=== PATIENT | female | born 1940 | race Caucasian/White ===

== ENCOUNTER 2020-11-04 13:28 | Outpatient (CLI) | payer BC ==
--- NOTE | 2020-11-04 14:48 | MRI ---
Exam: MRI cervical spine without contrast HISTORY: Cervical disc disease. Neck pain x4 years.. COMPARISON: Prior MRIs performed in [place] are not available at this time FINDINGS: Appropriate T1 marrow signal intensity of the cervical vertebra. Cervical spine vertebral body heigh t is maintained. No fracture. No significant STIR hyperintensity to suggest ligamentous injury or vertebral body edema Visualized brain parenchyma, cervicomedullary junction, cervical cord and the upper thoracic cord are normal size and signal intensity C2-C3: Adequate disc hydration. No significant central canal stenosis or significant neural foraminal narrowing C3-C4: Adequate disc hydration. No significant central canal stenosis or significant neural foraminal narrowing C4-C5: Normal disc desiccation without significant loss of disc space height. Central disc herniation abuts the thecal sac. Subarachnoid space is maintained. No significant central canal stenosis. Patent bilateral neural foramina. C5-C6: Disc desiccation with moderate loss of disc space height. Broad-based discussed by complex eff aces the subarachnoid space. Mild flattening the cervical cord. Mild to moderate central canal stenosis. Moderate right neural foraminal narrowing due to uncovertebral hypertrophy. Patent left omayra ral foramen. C6-C7: Disc desiccation without significant loss of disc space height. Broad-based disc bulge abuts t he thecal sac. Subarachnoid space is maintained. No significant central canal stenosis. Patent bilateral neural foramina C7-T1: No significant central canal stenosis or significant neural foraminal foraminal narrowing IMPRESSION: Degenerative changes of the cervical spine as described above.
--- NOTE | 2020-11-04 14:51 | RAD ---
CERVICAL SPINE: 4 views INDICATIONS:Cervical disc disease. Neck pain COMPARISON:None FINDINGS: Vertebral bodies maintain height. Mild posterior listhesis at C5-6. Loss of disc space at C5-6. Posterior elements are normally aligned. Moderate degenerative spurring at C5, C6 vertebral bodies. Facet hypertrophy. No soft tissue abnormality identified. IMPRESSION: Moderate degenerative changes at C5-6.
== END 2020-11-04 13:29 | disposition home or self-care (01) ==
LOC: BICMRI 13:28
PROVIDERS: ATTEND Family Medicine
DX: M50.10 Cervical disc disorder with radiculopathy, unspecified cervical region (principal); M47.22 Other spondylosis with radiculopathy, cervical region; G89.4 Chronic pain syndrome
CPT/HCPCS: 72040; 72141

== ENCOUNTER 2021-02-10 11:15 | Observation (INO) | payer BC ==
[~2021-02-10 11:15] MED LIST: Iopamidol-370 76% 500 ML 1 ML ONE
[2021-02-10 12:11] LABS: #Basophils 0.1 thou/uL (0.0-0.2); #Lymphocytes 0.6 thou/uL (1.20-3.40); #Monocytes 1.1 thou/uL (0.11-0.59); %Basophils 0.4 % (0.0-1.0); %Eosinophils 0.2 % (0.0-10.0); %Lymphocytes 4.7 % (21.0-51.0); %Monocytes 8.7 % (0.0-10.0); Hemoglobin 11.9 g/dL (12.0-16.0); Mean Corpuscular HGB CONC 31.9 g/dL (32.0-36.0); Mean Corpuscular Volume 90.7 fL (78.0-98.0); Mean Platelet Volume 8.5 fL (7.4-10.4); Platelet Count 204 thou/uL (130-400); RBC Distribution Width 12.5 % (11.5-14.5); White Blood Cell (WBC) Count 12.8 thou/uL (4.8-10.8)
[2021-02-10 12:31] LABS: ALT (SGPT) 13 U/L (8-55); AST (SGOT) 25 U/L (5-34); Albumin 3.8 g/dL (3.4-4.8); Alkaline Phosphatase 120 U/L (40-110); Anion Gap 16 mmol/L (10-20); BUN (Urea Nitrogen) 20 mg/dL (9.8-20.1); Bilirubin, Total 1.3 mg/dL (0.2-1.2); Calc. Creatinine Clearance 0 mL/min (70-130); Calcium 8.7 mg/dL (7.8-10.44); Carbon Dioxide 32 mmol/L (23-31); Chloride 94 mmol/L (98-107); Globulin 2.7 g/dL (2.4-3.5); Glucose 142 mg/dL (83-110); Potassium 3.9 mmol/L (3.5-5.1); Protein, Total 6.5 g/dL (5.8-8.1); Sodium 138 mmol/L (136-145)
[2021-02-10 15:25] LABS: Troponin I Less than 0.010 ng/mL (< 0.028)
[2021-02-10] MEDS ORDERED: Ondansetron ODT 4 MG TAB PO PRN (15:53)
[2021-02-10] MEDS ORDERED: Lactated Ringer's 1,000 ML IV SCH (16:15)
[2021-02-10] MEDS ORDERED: Acetaminophen 325 MG TAB PO PRN (16:36)
[2021-02-10] MEDS ORDERED: Acetaminophen 325 MG TAB ONE (17:22)
[2021-02-10 18:05] LABS: Hemoglobin A1c 5.3 % (4.0-6.0)
[2021-02-10 18:21] LABS: Troponin I Less than 0.010 ng/mL (< 0.028)
[2021-02-10 22:39] LABS: Bacteria/HPF 4+ HPF (None Seen); Bilirubin Negative (Negative); Blood, Urine 2+ (Negative); Clarity Turbid (Clear); Glucose, Urine (Dipstick) Normal (Negative); Ketone, Urine Negative (Negative); Leukocyte 500 Leu/uL (Negative); Nitrite Negative (Negative); Protein, Urine (Dipstick) 70 mg/dL (Neg-Trace); Renal Epithelial 0-3 HPF (None Seen); Specific Gravity, Urine 1.018 (1.002-1.036); Squamous Epithelial 0-3 HPF (0-3); WBC/HPF Greater than 50 HPF (0-3)
[2021-02-10 22:58] VITALS: BMI 28.5
[2021-02-11 01:17] LABS: SARS-CoV-2 PCR by NAA Not Detected (NotDetected)
[2021-02-11] MEDS ORDERED: Levothyroxine Sodium 50 MCG TAB PO SCH (06:00)
[2021-02-11 07:27] LABS: #Eosinphils 0.1 thou/uL (0.0-0.7); #Lymphocytes 1.2 thou/uL (1.20-3.40); #Monocytes 1.7 thou/uL (0.11-0.59); #Neutrophils 11.5 thou/uL (1.40-6.50); %Basophils 0.3 % (0.0-1.0); %Eosinophils 0.4 % (0.0-10.0); %Lymphocytes 8.5 % (21.0-51.0); %Monocytes 11.7 % (0.0-10.0); %Neutrophils 79.1 % (42.0-75.0); Hemoglobin 11.2 g/dL (12.0-16.0); Mean Corpuscular HGB CONC 32.5 g/dL (32.0-36.0); Mean Corpuscular Hemoglobin 29.4 pg (27.0-31.0); Mean Corpuscular Volume 90.5 fL (78.0-98.0); Mean Platelet Volume 8.5 fL (7.4-10.4); Platelet Count 190 thou/uL (130-400); RBC Distribution Width 12.5 % (11.5-14.5); Red Blood Cell (RBC) Count 3.81 mill/uL (4.20-5.40); White Blood Cell (WBC) Count 14.6 thou/uL (4.8-10.8)
[2021-02-11 07:45] LABS: Anion Gap 13 mmol/L (10-20); BUN (Urea Nitrogen) 20 mg/dL (9.8-20.1); Calc. Creatinine Clearance 61 mL/min (70-130); Calcium 8.5 mg/dL (7.8-10.44); Carbon Dioxide 32 mmol/L (23-31); Chloride 95 mmol/L (98-107); Glucose 125 mg/dL (83-110); Sodium 137 mmol/L (136-145)
[2021-02-11 07:53] LABS: Potassium 2.7 mmol/L (3.5-5.1)
[2021-02-11 08:27] VITALS: TEMP 97.7
[2021-02-11] MEDS ORDERED: Cefdinir 300 MG CAP PO SCH (09:00)
[2021-02-11] MEDS ORDERED: Atorvastatin Calcium 20 MG TAB PO SCH (09:00)
[2021-02-11] MEDS ORDERED: Amlodipine 5 MG TAB PO SCH (09:00)
[2021-02-11] MEDS ORDERED: Hydrochlorothiazide 25 MG TAB PO SCH (09:00)
[2021-02-11] MEDS ORDERED: Potassium Chloride 20 MEQ TAB PO SCH (09:15)
[2021-02-11 12:25] VITALS: BP 118/58
[2021-02-11 12:30] LABS: Anion Gap 13 mmol/L (10-20); BUN (Urea Nitrogen) 20 mg/dL (9.8-20.1); Calc. Creatinine Clearance 60 mL/min (70-130); Calcium 8.8 mg/dL (7.8-10.44); Carbon Dioxide 34 mmol/L (23-31); Chloride 94 mmol/L (98-107); Glucose 83 mg/dL (83-110); Potassium 3.5 mmol/L (3.5-5.1); Sodium 137 mmol/L (136-145)
[2021-02-11] MEDS ORDERED: Gabapentin 100 MG CAP PO SCH (21:00)
== END 2021-02-11 14:57 | disposition home or self-care (01) ==
LOC: ERS 11:15 → 2SW 18:00
PROVIDERS: ADMIT Student in an Organized Health Care Education/Training Program; ATTEND Student in an Organized Health Care Education/Training Program
DX: E86.9 Volume depletion, unspecified (principal); R55 Syncope and collapse; N39.0 Urinary tract infection, site not specified; B96.20 Unspecified Escherichia coli [E. coli] as the cause of diseases classified elsewhere; E87.6 Hypokalemia; J44.9 Chronic obstructive pulmonary disease, unspecified; I10 Essential (primary) hypertension; E03.9 Hypothyroidism, unspecified; E78.5 Hyperlipidemia, unspecified; I45.10 Unspecified right bundle-branch block; K42.9 Umbilical hernia without obstruction or gangrene; I70.0 Atherosclerosis of aorta; Z87.891 Personal history of nicotine dependence; Z79.899 Other long term (current) drug therapy; Z88.2 Allergy status to sulfonamides; Z20.822 Contact with and (suspected) exposure to COVID-19; W19.XXXA Unspecified fall, initial encounter
CPT/HCPCS: 36415; 70450; 71045; 71275; 80048; 80053; 81001; 82550; 83036; 83880; 84443; 84484; 85025; 87077; 87086; 87186; 87635; 93005; 93306; G0378; Q9967; U0003; U0005

== ENCOUNTER 2021-12-01 11:14 | Inpatient (IN) | payer BC ==
[2021-12-01 12:09] LABS: #Eosinphils 0.2 thou/uL (0.0-0.7); #Lymphocytes 1.2 thou/uL (1.20-3.40); #Monocytes 1.6 thou/uL (0.11-0.59); #Neutrophils 9.3 thou/uL (1.40-6.50); %Basophils 0.2 % (0.0-1.0); %Eosinophils 1.4 % (0.0-10.0); %Monocytes 12.8 % (0.0-10.0); %Neutrophils 75.6 % (42.0-75.0); Hemoglobin 10.4 g/dL (12.0-16.0); Mean Corpuscular HGB CONC 32.2 g/dL (32.0-36.0); Mean Corpuscular Hemoglobin 29.7 pg (27.0-31.0); Mean Corpuscular Volume 92.2 fL (78.0-98.0); Mean Platelet Volume 8.4 fL (7.4-10.4); Platelet Count 225 thou/uL (130-400); RBC Distribution Width 12.9 % (11.5-14.5); Red Blood Cell (RBC) Count 3.51 mill/uL (4.20-5.40); White Blood Cell (WBC) Count 12.3 thou/uL (4.8-10.8)
[2021-12-01 12:44] LABS: ALT (SGPT) 42 U/L (8-55); AST (SGOT) 70 U/L (5-34); Albumin 3.5 g/dL (3.4-4.8); Alkaline Phosphatase 136 U/L (40-110); Anion Gap 14 mmol/L (10-20); BUN (Urea Nitrogen) 37 mg/dL (9.8-20.1); Bilirubin, Total 0.4 mg/dL (0.2-1.2); Calc. Creatinine Clearance 0 mL/min (70-130); Calcium 8.9 mg/dL (7.8-10.44); Carbon Dioxide 31 mmol/L (23-31); Chloride 94 mmol/L (98-107); Globulin 3.4 g/dL (2.4-3.5); Glucose 98 mg/dL (83-110); Protein, Total 6.9 g/dL (5.8-8.1); Sodium 136 mmol/L (136-145)
[2021-12-01 13:01] LABS: Lipase 73 U/L (8-78); Potassium 2.9 mmol/L (3.5-5.1)
[2021-12-01] MEDS ORDERED: Potassium Chloride 20 MEQ TAB ONE (13:21)
[2021-12-01] MEDS ORDERED: Piperacillin/Tazobactam 4.5 GM VIAL ONE (14:12)
[2021-12-01] MEDS ORDERED: Vancomycin 1.5 GRAM/300 ML BAG 1.5 GM in Premix Bag 1 BAG IVPB SCH (15:00)
[2021-12-01] MEDS ORDERED: Magnesium 2 GM/50 ML BAG (IN WATER) ONE (15:42)
[2021-12-01 16:20] LABS: Bacteria/HPF None Seen HPF (None Seen); Bilirubin Negative (Negative); Blood, Urine 1+ (Negative); Clarity Clear (Clear); Glucose, Urine (Dipstick) Normal (Negative); Ketone, Urine Negative (Negative); Leukocyte 25 Leu/uL (Negative); Nitrite Negative (Negative); Protein, Urine (Dipstick) 20 mg/dL (Neg-Trace); RBC/HPF 0-3 HPF (0-3); Specific Gravity, Urine 1.034 (1.002-1.036); Squamous Epithelial None Seen HPF (0-3); Urobilinogen Normal mg/dL (Less than 2)
[2021-12-01 16:21] LABS: Magnesium 2.2 mg/dL (1.6-2.6)
[2021-12-01] MEDS ORDERED: Ondansetron PF 4 MG/2 ML Vial IVP PRN (18:46)
[2021-12-01] MEDS: cefTRIAXone\\ROCEPHIN 1 GM in Sodium Chloride 0.9% 100 ML IVPB SCH (20:23)
[2021-12-01] MEDS: Potassium Chloride 20 MEQ TAB PO SCH ×2 (20:23→22:40)
[2021-12-01 21:36] VITALS: BMI 28.5
[2021-12-02 04:28] LABS: #Eosinphils 0.4 thou/uL (0.0-0.7); #Lymphocytes 1.2 thou/uL (1.20-3.40); #Monocytes 1.4 thou/uL (0.11-0.59); #Neutrophils 6.7 thou/uL (1.40-6.50); %Basophils 0.2 % (0.0-1.0); %Eosinophils 4.3 % (0.0-10.0); %Lymphocytes 12.3 % (21.0-51.0); %Monocytes 14.1 % (0.0-10.0); %Neutrophils 69.1 % (42.0-75.0); Mean Corpuscular HGB CONC 31.8 g/dL (32.0-36.0); Mean Corpuscular Hemoglobin 28.8 pg (27.0-31.0); Mean Corpuscular Volume 90.5 fL (78.0-98.0); Mean Platelet Volume 9.1 fL (7.4-10.4); Platelet Count 208 thou/uL (130-400); Red Blood Cell (RBC) Count 3.82 mill/uL (4.20-5.40); White Blood Cell (WBC) Count 9.7 thou/uL (4.8-10.8)
[2021-12-02] MEDS: Levothyroxine Sodium 50 MCG TAB PO SCH (05:08)
[2021-12-02] MEDS ORDERED: Mometasone 100 MCG/PUFF (1 INHALER) INH SCH (06:30)
[2021-12-02] MEDS ORDERED: Fluticasone/Umeclidin/Vilanter (Trelegy Ellipta 100-62.5-25) INH SCH (07:00)
[2021-12-02 08:50] LABS: Anion Gap 11 mmol/L (10-20); BUN (Urea Nitrogen) 27 mg/dL (9.8-20.1); Calc. Creatinine Clearance 58 mL/min (70-130); Calcium 8.5 mg/dL (7.8-10.44); Carbon Dioxide 32 mmol/L (23-31); Chloride 98 mmol/L (98-107); Glucose 89 mg/dL (83-110); Potassium 3.9 mmol/L (3.5-5.1); Sodium 137 mmol/L (136-145)
[2021-12-02] MEDS: Oxybutynin 5 MG TAB PO SCH (09:00)
[2021-12-02] MEDS: Atorvastatin Calcium 20 MG TAB PO SCH (09:00)
[2021-12-02] MEDS: Enoxaparin Sodium 40 MG/0.4 ML SYRINGE SC SCH (09:00)
[2021-12-02] MEDS ORDERED: Non-Formulary Item 1 EACH (Fluticasone/Umeclidin/Vilanter [Trelegy Ellipta 100-62.5-25] 1 IH SCH (09:00)
[2021-12-02] MEDS: cefTRIAXone\\ROCEPHIN 1 GM in Sodium Chloride 0.9% 100 ML IVPB SCH (20:39)
[2021-12-03] MEDS: Levothyroxine Sodium 50 MCG TAB PO SCH (05:14)
[2021-12-03] MEDS: Oxybutynin 5 MG TAB PO SCH (08:21)
[2021-12-03] MEDS: Enoxaparin Sodium 40 MG/0.4 ML SYRINGE SC SCH (08:21)
[2021-12-03] MEDS: Atorvastatin Calcium 20 MG TAB PO SCH (08:22)
[2021-12-03] MEDS: cefTRIAXone\\ROCEPHIN 1 GM in Sodium Chloride 0.9% 100 ML IVPB SCH (20:47)
[2021-12-04] MEDS: Levothyroxine Sodium 50 MCG TAB PO SCH (05:01)
[2021-12-04] MEDS: Acetaminophen 325 MG TAB PO PRN ×2 (08:13)
[2021-12-04] MEDS: Atorvastatin Calcium 20 MG TAB PO SCH (08:13)
[2021-12-04] MEDS: Enoxaparin Sodium 40 MG/0.4 ML SYRINGE SC SCH (09:00)
[2021-12-04] MEDS: Oxybutynin 5 MG TAB PO SCH (09:00)
[2021-12-04 13:24] VITALS: BP 120/74; TEMP 97.4
== END 2021-12-04 13:45 | disposition home or self-care (01) | DRG 872 ==
LOC: ERS 11:14 → 2NO 15:46 → T4-B 12-02 15:17
PROVIDERS: ADMIT Internal Medicine; ATTEND Internal Medicine
DX: A41.51 Sepsis due to Escherichia coli [E. coli] (principal); J96.11 Chronic respiratory failure with hypoxia; N30.90 Cystitis, unspecified without hematuria; J44.9 Chronic obstructive pulmonary disease, unspecified; I10 Essential (primary) hypertension; E78.5 Hyperlipidemia, unspecified; E03.9 Hypothyroidism, unspecified; E87.6 Hypokalemia; Z88.8 Allergy status to other drugs, medicaments and biological substances; Z88.2 Allergy status to sulfonamides; Z87.440 Personal history of urinary (tract) infections; Z79.899 Other long term (current) drug therapy; Z79.890 Hormone replacement therapy; Z79.52 Long term (current) use of systemic steroids; Z99.81 Dependence on supplemental oxygen; Z90.49 Acquired absence of other specified parts of digestive tract; Z90.710 Acquired absence of both cervix and uterus; Z87.891 Personal history of nicotine dependence
CPT/HCPCS: 36415; 74177; 80048; 80053; 81003; 81015; 82533; 83605; 83690; 83735; 85025; 87040; 87077; 87086; 87149; 87186; 94760; 96365; 96366; 96367; 96368; J0696; J1650; J2543; J3370; J3475; J3490

== ENCOUNTER 2022-04-29 10:14 | Outpatient (CLI) | payer BC | END 2022-04-29 10:15 | disposition home or self-care (01) | LOC: LABBT 10:14 | PROVIDERS: ATTEND Internal Medicine Pulmonary Disease | DX: Z20.822 Contact with and (suspected) exposure to COVID-19 (principal) | CPT/HCPCS: 87811 ==

== ENCOUNTER 2022-12-20 12:16 | Inpatient (IN) | payer BC ==
[~2022-12-20 12:16] MED LIST changes: -Iopamidol-370 76% 500 ML 1 ML ONE; +Iopamidol-370 76% 500 ML MDV (1 ML CHARGE) ONE
[2022-12-20] MEDS ORDERED: Ipratropium/Albuterol 3 ML NEB ONE (13:20)
[2022-12-20] MEDS ORDERED: predniSONE 20 MG TAB ONE (13:22)
[2022-12-20] MEDS ORDERED: cefTRIAXone (ROCEPHIN) 2 GM VIAL ONE (13:22)
[2022-12-20 13:35] LABS: Analyzer IN Cardio ER; Base Excess 12.6 mEq/L (-2.0 to +3.0); Chloride (VBG) 90 mmol/L (98-106); Hemoglobin (Hb) 13.2 g/dL (11.7-16.1); Potassium (VBG) 2.83 mmol/L (3.70-5.30); pH (venous) 7.43 (7.32-7.43)
[2022-12-20 13:45] LABS: Actual Bicarbonate (HCO3v) 40 mEq/L (22-28)
[2022-12-20 14:01] LABS: ALT (SGPT) 40 U/L (8-55); AST (SGOT) 44 U/L (5-34); Alkaline Phosphatase 209 U/L (40-110); Anion Gap 19 mmol/L (10-20); BUN (Urea Nitrogen) 15 mg/dL (9.8-20.1); Bilirubin, Total 0.6 mg/dL (0.2-1.2); Calc. Creatinine Clearance 0 mL/min (70-130); Calcium 9.4 mg/dL (7.8-10.44); Carbon Dioxide 34 mmol/L (23-31); Chloride 89 mmol/L (98-107); Estimated GFR 71; Globulin 3.9 g/dL (2.4-3.5); Glucose 112 mg/dL (83-110); Potassium 2.8 mmol/L (3.5-5.1); Protein, Total 7.9 g/dL (5.8-8.1); Sodium 139 mmol/L (136-145)
[2022-12-20 14:12] LABS: Hemoglobin 12.2 g/dL (12.0-16.0); Mean Corpuscular HGB CONC 31.7 g/dL (32.0-36.0); Mean Corpuscular Hemoglobin 28.8 pg (27.0-31.0); Mean Platelet Volume 8.7 fL (7.4-10.4); Platelet Count 321 10x3/uL (130-400); RBC Distribution Width 12.4 % (11.5-14.5); Red Blood Cell (RBC) Count 4.23 mill/uL (4.20-5.40); White Blood Cell (WBC) Count 13.9 10x3/uL (4.8-10.8)
[2022-12-20] MEDS ORDERED: Magnesium 2 GM/50 ML BAG (IN WATER) ONE (14:15)
[2022-12-20] MEDS ORDERED: Azithromycin 250 MG TAB ONE (14:15)
[2022-12-20 14:32] LABS: Band 9 % (5-11); Lymphocytes 8 % (21-51); MDiff Complete? YES; Monocytes 11 % (0-10); Myelocyte 2 % (0-0); Neutrophil 69 % (42-75); Platelet Morphology Comment Appears Adequate; Polychromasia SLIGHT = 2-3 cells (100X) (0-2/hpf); Reactive Lymphocytes 1 % (0-10); Stomatocytes SLIGHT = 2-5 cells (100X) (0-1/hpf)
[2022-12-20] MEDS ORDERED: Potassium Chloride 20 MEQ TAB ONE (14:51)
[2022-12-20 15:50] LABS: Bacteria/HPF None Seen HPF (None Seen); Bilirubin Negative (Negative); Blood, Urine Negative (Negative); Clarity Clear (Clear); Glucose, Urine (Dipstick) Normal (Negative); Ketone, Urine 40 mg/dL (Negative); Leukocyte Negative Leu/uL (Negative); Nitrite Negative (Negative); Protein, Urine (Dipstick) 30 mg/dL (Neg-Trace); RBC/HPF 0-3 HPF (0-3); Specific Gravity, Urine 1.015 (1.002-1.036); Squamous Epithelial 0-3 HPF (0-3); WBC/HPF 0-3 HPF (0-3); pH, Urine 6.5 (5.0-9.0)
[2022-12-20] MEDS ORDERED: Ondansetron PF 4 MG/2 ML Vial IVP PRN (16:23)
[2022-12-20] MEDS ORDERED: Acetaminophen 325 MG TAB PO PRN (16:23)
[2022-12-20] MEDS ORDERED: HYDROcodone/Acetaminophen 5/325 mg Tablet PO PRN (16:23)
[2022-12-20] MEDS ORDERED: Ondansetron ODT 4 MG TAB PO PRN (16:23)
[2022-12-20] MEDS ORDERED: Ipratropium/Albuterol 3 ML NEB NEB PRN (16:27)
[2022-12-20] MEDS ORDERED: Polyethylene Glycol 3350 17 GM Packet PO SCH (16:30)
[2022-12-20] MEDS ORDERED: Electrolyte Replacement Protocol FS SCH (16:45)
[2022-12-20 17:21] LABS: Troponin I 0.014 ng/mL (< 0.028)
[2022-12-20] MEDS ORDERED: Azithromycin 500 MG in Sodium Chloride 0.9% 250 ML 250 ML IVPB SCH (18:00)
[2022-12-20 18:31] VITALS: BMI 26.8
[2022-12-20 20:51] LABS: Troponin I Less than 0.010 ng/mL (< 0.028)
[2022-12-20] MEDS ORDERED: Potassium Chloride 20 MEQ TAB PO SCH (21:00)
[2022-12-20] MEDS ORDERED: Oxybutynin 5 MG TAB PO SCH (22:00)
[2022-12-20] MEDS ORDERED: Potassium Bicarbonate/Cit Ac 20 MEQ TAB PO SCH (22:00)
[2022-12-20] MEDS: methylPREDNISolone Sod Succ 40 MG VIAL IVP SCH (22:05)
[2022-12-20] MEDS ORDERED: Gabapentin 100 MG CAP PO SCH (22:30)
[2022-12-21] MEDS: methylPREDNISolone Sod Succ 40 MG VIAL IVP SCH ×4 (00:40→21:21)
[2022-12-21 04:59] LABS: Hemoglobin 11.2 g/dL (12.0-16.0); Mean Corpuscular HGB CONC 31.1 g/dL (32.0-36.0); Mean Corpuscular Hemoglobin 28.6 pg (27.0-31.0); Mean Corpuscular Volume 91.9 fl (78.0-98.0); Platelet Count 302 10x3/uL (130-400); RBC Distribution Width 12.2 % (11.5-14.5); Red Blood Cell (RBC) Count 3.93 mill/uL (4.20-5.40); White Blood Cell (WBC) Count 9.1 10x3/uL (4.8-10.8)
[2022-12-21] MEDS: Levothyroxine Sodium 50 MCG TAB PO SCH (05:18)
[2022-12-21 05:25] LABS: Anion Gap 11 mmol/L (10-20); BUN (Urea Nitrogen) 18 mg/dL (9.8-20.1); Calc. Creatinine Clearance 62 mL/min (70-130); Calcium 8.7 mg/dL (7.8-10.44); Carbon Dioxide 34 mmol/L (23-31); Chloride 96 mmol/L (98-107); Estimated GFR 80; Glucose 150 mg/dL (83-110); Magnesium 2.4 mg/dL (1.6-2.6); Sodium 137 mmol/L (136-145)
[2022-12-21 05:56] LABS: Band 25 % (5-11); Lymphocytes 10 % (21-51); MDiff Complete? YES; Metamyelocyte 1 % (0-0); Monocytes 2 % (0-10); Neutrophil 62 % (42-75)
[2022-12-21] MEDS ORDERED: Ipratropium/Albuterol 3 ML NEB NEB PRN (08:30)
[2022-12-21] MEDS: Atorvastatin Calcium 20 MG TAB PO SCH (09:50)
[2022-12-21] MEDS: Hydrochlorothiazide 25 MG TAB PO SCH (09:50)
[2022-12-21] MEDS: Trospium 20 MG TAB PO SCH (09:50)
[2022-12-21] MEDS: Polyethylene Glycol 3350 17 GM Packet PO SCH (09:51)
[2022-12-21] MEDS: Gabapentin 100 MG CAP PO SCH ×2 (09:54→21:19)
[2022-12-21] MEDS ORDERED: Ipratropium/Albuterol 3 ML NEB NEB SCH (13:00)
[2022-12-21] MEDS: Levalbuterol HCl 0.63 MG/3 ML NEB NEB SCH ×2 (13:49→21:01)
[2022-12-21] MEDS ORDERED: Azithromycin 250 MG TAB PO SCH (18:00)
[2022-12-21] MEDS ORDERED: Mometasone 100 MCG/PUFF (1 INHALER) INH SCH (18:30)
[2022-12-21] MEDS ORDERED: Oxybutynin 5 MG TAB PO SCH (21:00)
[2022-12-21] MEDS: Mometasone 200 MCG/Formoterol 5 MCG 120 PUFF INHALER INH SCH (21:05)
[2022-12-22 03:47] VITALS: TEMP 97.4
[2022-12-22] MEDS: Levothyroxine Sodium 50 MCG TAB PO SCH (05:36)
[2022-12-22] MEDS: methylPREDNISolone Sod Succ 40 MG VIAL IVP SCH (05:37)
[2022-12-22] MEDS: Mometasone 200 MCG/Formoterol 5 MCG 120 PUFF INHALER INH SCH (06:50)
[2022-12-22] MEDS: Levalbuterol HCl 0.63 MG/3 ML NEB NEB SCH (07:00)
[2022-12-22 08:15] VITALS: BP 129/73
[2022-12-22] MEDS: Polyethylene Glycol 3350 17 GM Packet PO SCH (09:17)
[2022-12-22] MEDS: Hydrochlorothiazide 25 MG TAB PO SCH (09:18)
[2022-12-22] MEDS: Atorvastatin Calcium 20 MG TAB PO SCH (09:18)
[2022-12-22] MEDS: Gabapentin 100 MG CAP PO SCH (09:18)
[2022-12-22] MEDS: Trospium 20 MG TAB PO SCH (09:18)
== END 2022-12-22 11:20 | disposition home or self-care (01) | DRG 191 ==
LOC: ERS 12:16 → 2SW 16:00 → OBSVTOIN 12-21 14:57
PROVIDERS: ADMIT Internal Medicine; ATTEND Internal Medicine
PROC: 4A033R1 Measurement of Arterial Saturation, Peripheral, Percutaneous Approach (ICD-10-PCS; principal; 2022-12-21)
DX: J44.1 Chronic obstructive pulmonary disease with (acute) exacerbation (principal); J96.10 Chronic respiratory failure, unspecified whether with hypoxia or hypercapnia; Z99.81 Dependence on supplemental oxygen; I10 Essential (primary) hypertension; E03.9 Hypothyroidism, unspecified; E87.6 Hypokalemia; Z79.890 Hormone replacement therapy; Z79.899 Other long term (current) drug therapy; Z79.52 Long term (current) use of systemic steroids; Z88.2 Allergy status to sulfonamides; Z88.8 Allergy status to other drugs, medicaments and biological substances; Z90.49 Acquired absence of other specified parts of digestive tract; Z90.710 Acquired absence of both cervix and uterus; Z87.891 Personal history of nicotine dependence; E78.00 Pure hypercholesterolemia, unspecified
CPT/HCPCS: 36415; 71045; 71275; 80048; 80053; 81003; 81015; 82805; 83605; 83735; 83880; 84484; 85025; 85379; 87040; 87086; 93005; 94640; 96372; 96375; 96376; G0378; J0456; J0696; J1650; J2920; J3475; J7050; J7512; J7614; J7620; Q9967

== ENCOUNTER 2023-01-19 10:17 | Day surgery (SDC) | payer BC ==
[2023-01-18 13:59] VITALS: BMI 29.2
[2023-01-19 12:13] LABS: Hemoglobin 11.3 g/dL (12.0-16.0)
[2023-01-19 12:28] LABS: Anion Gap 12 mmol/L (10-20); BUN (Urea Nitrogen) 13 mg/dL (9.8-20.1); Calc. Creatinine Clearance 65 mL/min (70-130); Calcium 8.9 mg/dL (7.8-10.44); Carbon Dioxide 35 mmol/L (23-31); Chloride 98 mmol/L (98-107); Estimated GFR 75; Glucose 93 mg/dL (83-110); Potassium 3.1 mmol/L (3.5-5.1); Sodium 142 mmol/L (136-145)
[2023-01-19] MEDS ORDERED: EPINEPHrine 1 MG/ML AMP ONE (12:55)
[2023-01-19] MEDS ORDERED: Lidocaine 1% (PF) 30 ML VIAL ONE (12:55)
[2023-01-19] MEDS ORDERED: fentaNYL 50 mcg/mL 1 mL Vial ONE (13:03)
[2023-01-19] MEDS ORDERED: Lidocaine 2% 6 ML SYR ONE (13:34)
[2023-01-19] MEDS ORDERED: Ondansetron PF 4 MG/2 ML Vial ONE (13:45)
[2023-01-19] MEDS ORDERED: PROPOFOL 200 MG/20 ML VIAL ONE (13:45)
== END 2023-01-19 14:35 | disposition home or self-care (01) ==
LOC: SDC 10:17
PROVIDERS: ATTEND Otolaryngology Plastic Surgery within the Head & Neck
PROC: 03BT0ZX Excision of Left Temporal Artery, Open Approach, Diagnostic (ICD-10-PCS; principal; 2023-01-19)
DX: M31.6 Other giant cell arteritis (principal); J44.9 Chronic obstructive pulmonary disease, unspecified; M19.90 Unspecified osteoarthritis, unspecified site; E07.9 Disorder of thyroid, unspecified; Z87.891 Personal history of nicotine dependence; Z88.2 Allergy status to sulfonamides
CPT/HCPCS: 80048; 85014; 85018; 88305; 93005; 93010; J0171; J2001; J2405; J2704; J3010

== ENCOUNTER 2023-04-07 10:27 | Outpatient (CLI) | payer BC | END 2023-04-07 10:28 | disposition home or self-care (01) | LOC: ULT 10:27 | PROVIDERS: ATTEND Family Medicine | DX: R74.8 Abnormal levels of other serum enzymes (principal) | CPT/HCPCS: 76700 ==

== ENCOUNTER 2023-09-04 10:04 | Emergency (ER) | payer BC ==
[2023-09-04 10:39] LABS: #Monocytes 0.7 thou/uL (0.11-0.59); #Neutrophils 4.7 thou/uL (1.40-6.50); %Basophils 0.3 % (0.0-1.0); %Eosinophils 0.3 % (0.0-10.0); %Lymphocytes 14.9 % (21.0-51.0); %Monocytes 10.7 % (0.0-10.0); Hematocrit 36.4 % (36.0-47.0); Hemoglobin 11.5 g/dL (12.0-16.0); Mean Corpuscular HGB CONC 31.6 g/dL (32.0-36.0); Mean Corpuscular Hemoglobin 28.6 pg (27.0-31.0); Mean Corpuscular Volume 90.5 fl (78.0-98.0); Mean Platelet Volume 10.7 fL (7.4-10.4); Platelet Count 179 10x3/uL (130-400); RBC Distribution Width 13.7 % (11.5-14.5); Red Blood Cell (RBC) Count 4.02 mill/uL (4.20-5.40); White Blood Cell (WBC) Count 6.4 10x3/uL (4.8-10.8)
[2023-09-04 11:03] LABS: ALT (SGPT) 15 U/L (8-55); AST (SGOT) 38 U/L (5-34); Albumin 3.5 g/dL (3.4-4.8); Alkaline Phosphatase 114 U/L (40-110); Anion Gap 14 mmol/L (10-20); BUN (Urea Nitrogen) 18 mg/dL (9.8-20.1); Bilirubin, Total 0.6 mg/dL (0.2-1.2); Calc. Creatinine Clearance 0 mL/min (70-130); Calcium 8.5 mg/dL (7.8-10.44); Carbon Dioxide 31 mmol/L (23-31); Chloride 97 mmol/L (98-107); Estimated GFR 59; Globulin 2.9 g/dL (2.4-3.5); Glucose 127 mg/dL (83-110); Magnesium 1.6 mg/dL (1.6-2.6); Protein, Total 6.4 g/dL (5.8-8.1); Sodium 139 mmol/L (136-145)
[2023-09-04 11:06] LABS: Troponin I Less than 0.010 ng/mL (< 0.028)
[2023-09-04] MEDS ORDERED: Potassium Bicarbonate/Cit Ac 20 MEQ TAB ONE (13:12)
[2023-09-04] MEDS ORDERED: HYDROcodone/Acetaminophen 5/325 mg Tablet ONE (16:34)
== END 2023-09-04 18:43 | disposition home or self-care (01) ==
LOC: ERS 10:04
DX: S12.500A Unspecified displaced fracture of sixth cervical vertebra, initial encounter for closed fracture (principal); S12.600A Unspecified displaced fracture of seventh cervical vertebra, initial encounter for closed fracture; S12.400A Unspecified displaced fracture of fifth cervical vertebra, initial encounter for closed fracture; J44.9 Chronic obstructive pulmonary disease, unspecified; E78.00 Pure hypercholesterolemia, unspecified; E03.9 Hypothyroidism, unspecified; Z79.899 Other long term (current) drug therapy; Z87.891 Personal history of nicotine dependence; W19.XXXA Unspecified fall, initial encounter
CPT/HCPCS: 36415; 70450; 71045; 71275; 72125; 80053; 83735; 83880; 84484; 85025; 85379; 93005; Q9967